=== PATIENT | female | born 1965 | race Caucasian/White ===

== ENCOUNTER → 2021-08-29 12:01 | Outpatient (CLI) | payer OTHER, SELFPAY ==
[2021-08-29 13:42] LABS: COVID19 -Nasal RAPID Negative (Negative)
== END ==
PROVIDERS: Visit Provider Physician Assistant
DX: Z20.822 Contact with and (suspected) exposure to COVID-19 (principal)
CPT/HCPCS: 87635

== ENCOUNTER → 2021-08-30 13:34 | Outpatient (CLI) | payer OTHER, SELFPAY ==
--- NOTE | 2021-08-30 13:35 | DI.ECHO.S_ITS ---
[facility]---------+ [facility] +---------+ : : [address] : [address] : : [address] : : : : [id number] : : : : Phone: [phone]+ Echocardiogram Report + + :Name: DEREK LOAIZA Study Date: 08/30/2021 Height: 62 in : :[facility] ReadingLocation: Weight: 193 lb : : Gender: Female BSA: 1.9 m2 : :: 1965 Age: 56 yrs BP: 131/89 mmHg: :Reason For Study: PALPITATIONS : :Ordering Physician: JARET, : :MAURICIO Performed By: Jazlyn Darden : :Referring: MAURICIO RAYGOZA : + + Interpretation Summary The left ventricle is normal in size. The ejection fraction is estimated to be 60-65%. The right ventricle is normal in size and function. No significant valvular pathology seen. The IVC is of normal diameter and collapses greater than 50% with a sniff. This suggests a low right atrial pressure of 3 mm Hg. Procedure: A two-dimensional transthoracic echocardiogram with color flow and Doppler was performed. The study quality was technically adequate. There is no prior echocardiogram noted for this patient. The patient was in sinus rhythm with heart rates between 60-74 bpm during the exam. Left Ventricle: The left ventricle is normal in size. Proximal septal thickening is noted. There is no echo evidence for significant left ventricular outflow tract obstruction. There is no thrombus. The ejection fraction is estimated to be 60-65%. There are no focal wall motion abnormalities. MV E/A: 0.77 Med Peak E' Eagle: 4.8 cm/sec E/E' med: 10.8. Right Ventricle: The right ventricle is normal in size and function. Atria: The left atrium is mildly dilated. Right atrial size is normal. There is no Doppler evidence for an interatrial shunt. Mitral Valve: The mitral valve leaflets are slightly calcified. There is trace mitral regurgitation. Aortic Valve: The aortic valve is trileaflet. The aortic valve opens well. There is no aortic valve stenosis. No aortic regurgitation is present. Tricuspid Valve: The tricuspid valve is normal in structure and function. There is trace tricuspid regurgitation. Pulmonary artery pressures cannot be estimated because of the lack of a measurable TR jet velocity. Pulmonic Valve: The pulmonic valve leaflets are thin and pliable; valve motion is normal. There is no pulmonic valvular regurgitation. Great Vessels: The aortic root is normal size. The dimensions of the ascending aorta are normal. The IVC is of normal diameter and collapses greater than 50% with a sniff. This suggests a low right atrial pressure of 3 mm Hg. Pericardium/ Pleura There is no pericardial effusion. There is an anterior echo-free space consistent with a fat pad. There is no pleural effusion. MMode/2D Measurements & Calculations LVIDd: 4.9 cm LVOT diam: 2.3 cm LVIDs: 3.4 cm Ao root diam: 3.5 cm FS: 30.8 % asc Aorta Diam: 3.3 cm IVSd: 0.76 cm Ao Arch Diam (Prox Trans): 2.9 cm LVPWd: 0.79 cm LV espinal. diameter/BSA (cm/m^2): 2.6 LV sys. diameter/BSA (cm/m^2): 1.8 LA A2 area: 24.4 cm2 RA long axis: 4.6 cm LA A4 area: 17.2 cm2 RA area: 12.5 cm2 LA length (vol): 5.0 cm RA vol: 29.2 ml LA vol: 71.6 ml RA : 15.5 ml/m2 LA vol index: 38.0 ml/m2 IVC diam: 1.5 cm RVD1 (basal): 3.3 cm TAPSE: 2.1 cm Doppler Measurements & Calculations Ao V2 max: 125.3 cm/sec LVOT Max Eagle: 94.5 cm/sec Ao V2 mean: 86.4 cm/sec LV V1 max P.6 mmHg Ao max P.3 mmHg LV V1 VTI: 21.7 cm Ao mean P.4 mmHg FLAVIO(I,D): 3.4 cm2 Ao V2 VTI: 26.0 cm FLAVIO(V,D): 3.0 cm2 sev ratio: 0.83 FLAVIO indexed to BSA (cm^2/m^2): 1.8 MV E max eagle: 51.7 cm/sec PA V2 max: 115.7 cm/sec MV A max eagle: 66.9 cm/sec PA V2 mean: 77.2 cm/sec MV E/A: 0.77 PA mean P.7 mmHg Med Peak E' Eagle: 4.8 cm/sec PA pr(Accel): 20.8 mmHg E/E' med: 10.8 Lat Peak E' Eagle: 6.4 cm/sec E/E' lat: 8.1 E/e' average: 9.4 MV dec time: 0.16 sec SV(LVOT): 87.1 ml Reading Physician:10:45 PM
--- NOTE | 2021-08-30 13:36 | DI.NM.S_ITS ---
PROCEDURE: NM EXERCISE TREADMILL NON NUC COMPARISON: None. INDICATIONS: Palpitations FINDINGS: Resting ECG sinus rhythm. Tato protocol 6 minutes, 9 seconds; 7.0 METS; OFELIA +14%. Maximum heart rate 144 bpm, 88% peak predicted. Maximum blood pressure 180/100. Stress ECG sinus tachycardia, occasional PACs and PVCs, no ST segment changes. IMPRESSION: 1. No evidence of exercise-induced ischemia by ECG criteria. Occasional PACs and PVCs with exercise. 2. Fair exercise capacity. 3. Normal systolic blood pressure response to exercise. Dictated by: Ethel Lemus D.O. on 08/31/2021 at 14:26 Approved by: Ethel Lemus M.D. on 08/31/2021 at 14:30
== END ==
PROVIDERS: PCP Nurse Practitioner Family; Referring Provider Internal Medicine Cardiovascular Disease; Visit Provider Internal Medicine Cardiovascular Disease
DX: R00.2 Palpitations (principal); R07.89 Other chest pain
CPT/HCPCS: 93017; 93306